=== PATIENT | female | born 1990 | race Caucasian/White ===

== ENCOUNTER → 2020-04-09 | Outpatient (CLI) | payer OTHER ==
[~2020-04-09] MED LIST: ISOVUE-300 61% 50ML VIAL As Ordered ONE; LIDOCAINE 1% MDV 20ML VIAL As Ordered ONE; PROHANCE 279.3MG/ML 5ML VIAL As Ordered ONE
--- NOTE | 2020-04-09 09:03 | REP ---
INDICATION: LEFT HIP LABRAL TEAR. Patient reports left hip giving way. COMPARISON: Comparison left hip radiographs are from September 25, 2019.. TECHNIQUE: Precontrast imaging includes coronal T1 and T2-weighted scans of both hips. Precontrast high-resolution smaller field of view axial, coronal and sagittal T2 fat sat images are acquired of the hip. The injection procedure is performed and dictated separately. Postcontrast T1 fat sat images are acquired in all 3 planes. FINDINGS: Cortical and medullary bone signal intensity is normal in the proximal femurs bilaterally. There is no evidence to suggest avascular necrosis. Head neck junction morphology is normal. No hip joint effusion is seen on either side. Normal uterus and ovaries are seen. No intrapelvic mass or adenopathy is appreciated. No abdominal wall defect is seen. No juxta-articular fluid collection is appreciated. Post injection imaging shows good filling and enhancement of the left hip articulation. No loose body is seen. Ligamentum teres is intact. There is no evidence of acetabular labral cartilage tear. No articular cartilage disruption seen. Hamstring tendon insertions are unremarkable and symmetric. Cortical and medullary bone signal intensity is normal throughout the bony pelvis. IMPRESSION: Unremarkable MR arthrography left hip. No MR evidence of labral tear. <Electronically signed by Christian Calle > 04/09/20 0193
--- NOTE | 2020-04-09 12:19 | REP ---
INDICATION: LEFT HIP LABRAL TEAR. COMPARISON: None TECHNIQUE: The procedure was performed by Brina Bennett [facility], under the direct supervision of Dr. Calle. The benefits and risks of the procedure were explained to the patient, and an informed consent was obtained. Directly prior to the start of the procedure, a formal time-out was completed in the procedure room. The left femoral neck joint space was localized using fluoroscopic guidance. The skin was prepped and draped in a sterile fashion. Approximately 5 mL of 1% Lidocaine 10 mg/ml was used as a local anesthetic. Using fluoroscopic guidance, a #22 gauge spinal needle was inserted and advanced into the left femoral neck joint space. Approximately 1 mL of Isovue 300 was injected to verify placement. Twelve mL of a solution containing 20 mL of sterile saline and 0.15 mL of ProHance was injected into the joint space. The needle was removed and the patient was taken to MRI for post procedural imaging. FINDINGS: The patient tolerated the procedure well and there were no immediate complications. IMPRESSION: Left femoral neck MR arthrogram under fluoroscopic guidance. 0.1 minutes of fluoroscopy time was utilized for this procedure. Some fluoroscopic images are performed with last image hold technology. These images require no additional radiation. <Electronically signed by Brina Bennett > 04/09/20 1117 <Electronically signed by Christian Calle > 04/09/20 1212
== END ==
LOC: M RADPRO 06:25
PROVIDERS: ATTEND Orthopaedic Surgery Adult Reconstructive Orthopaedic Surgery
DX: M25.352 Other instability, left hip (principal)
CPT/HCPCS: 27093; 73723; 77002; A9576; Q9967